=== PATIENT | female | born 1985 | race Caucasian/White ===

== ENCOUNTER 2019-11-08 02:22 | Outpatient (CLI) | payer MEDICAID, SELFPAY | END 2019-11-08 02:42 | PROVIDERS: Visit Provider Family Medicine | DX: R69 Illness, unspecified (principal) ==

== ENCOUNTER 2019-11-16 08:07 | Outpatient (CLI) | payer MEDICAID, SELFPAY | END 2019-11-16 08:27 | PROVIDERS: Visit Provider Family Medicine | DX: R69 Illness, unspecified (principal) ==

== ENCOUNTER 2022-08-21 09:18 | Emergency (ER) | payer MEDICAID, SELFPAY ==
[2022-08-21] VITALS (25 sets, daily range): BP systolic 91–121; BP diastolic 52–80; PULSE 95–167; RESP 11–28; O2SAT 85–98
--- NOTE | 2022-08-21 09:15 | RT.EKG_ITS ---
APPROVED REPORT Exam: Resting ECG Reason for Exam: sob Patient Location: E HR:101 bpm ECG Measurements Heart Rate 101 AXIS NM 141 P 53 QRSd 95 QRS -59 QT 356 T 0 QTc 463 Conclusion Sinus tachycardia Left atrial enlargement. Left anterior fascicular block. no st elevation
--- NOTE | 2022-08-21 09:38 | W.ED.GENAD ---
Discharge Plan Disposition Patient Disposition: Transfer-Acute Inpatient Care Specific Acute Inpt Facility: [facility] Condition: Serious Discharge Details Clinical Impression: Pulmonary embolism, bilateral Primary Care Provider: None,None ED Provider: Kostas Johnson Home Meds and New Rx's Prescriptions: No Action methadone [Dolophine] 10 MG tablet 220 mg PO DAILY Medical Decision Making This is a 37-year-old female who is referred from the methadone clinic. She presented there with respiratory distress and tachycardia. The patient states to me that she has had 2 to 3 weeks of progressive episodes of shortness of breath that she is predominantly noted while she walks the dog. She will become increasingly short of breath and over the past 2 days it is worsened with minimal exercise tolerance. She has not had chest pain or syncope. She has some chronic lower extremity swelling but nothing that she notes is new or asymmetric. She denies a fever but has noted a cough. She has been smoking marijuana and cigarettes. No crack cocaine use for months. Patient arrives tachycardic, speaking in full sentences but noted to have room air sat approximately 86%. Differential diagnosis is broad but would include pulmonary embolism, pneumonitis, pneumothorax, CHF. Patient IV access established, screening labs including ABG obtained, referred for EKG. ABG reveals a pH 7.4, PCO2 of 28, PO2 of 65. A-a gradient is approximately 28. White blood cell count of 12, hematocrit 46, platelets 225. Sodium 141, potassium 3.6, chloride 103, bicarb 24, BUN 13, creatinine 1.3, BNP of 1866, troponin 331. D-dimer greater than 6000. CT scan of the chest obtained, which reveals small infiltrate left lower lobe, small infiltrate right middle lobe. Pulmonary infarcts cannot be excluded. There are numerous bilateral pulmonary emboli involving all lobes of the lung. There is no evidence of saddle embolus. There is evidence of right heart strain with RV to LV ratio greater than 1. Patient placed on heparin drip with bolus. Images uploaded to [facility] and case discussed with Dr Isbell (accepting to the service of Dr. Guaman), who advocates that we discontinue the heparin drip, administer 1 mg/kg of subcutaneous Lovenox. The patient is accepted in transfer with consideration of catheter administered thrombolytics. She will be transported by the [facility] program. Lab Data Lab results reviewed: Yes I reviewed the patient's lab results. Labs: Laboratory Results - last 24 hr 08/21/22 08/21/22 08/21/22 09:40 09:40 09:40 WBC 12.12 H RBC 5.21 Hgb 15.9 H Hct 46.1 H MCV 89 MCH 30.5 MCHC 34.5 RDW 13.9 Plt Count 225 MPV 9.2 Immature Gran % 0.6 Neutrophils % 86.5 Lymphocytes % 9.2 Monocytes % 3.3 Eosinophils % 0.2 Basophils % 0.2 Nucleated RBC % 0.0 Absolute Neutrophils 10.48 H Absolute Lymphocytes 1.12 L Absolute Monocytes 0.40 Absolute Eosinophils 0.02 Absolute Basophils 0.02 D-Dimer 6077 H ABG Sample Site ABG pH ABG pCO2 ABG pO2 ABG HCO3 ABG Total CO2 ABG O2 Saturation ABG Base Excess Oxygen Liter Flow Sodium 141 Potassium 3.6 Chloride 103 Carbon Dioxide 24.3 Anion Gap 13.7 H BUN 13 Creatinine 1.3 H Est GFR (CKD-EPI 2020) 53.64 Glucose 150 H Calcium 9.5 Magnesium 1.9 Total Bilirubin 0.7 AST 39 H ALT 51 Alkaline Phosphatase 116 Troponin I 331 H* NT-Pro-B Natriuret Pep 1866 H Total Protein 8.5 H Albumin 3.9 08/21/22 10:05 WBC RBC Hgb Hct MCV MCH MCHC RDW Plt Count MPV Immature Gran % Neutrophils % Lymphocytes % Monocytes % Eosinophils % Basophils % Nucleated RBC % Absolute Neutrophils Absolute Lymphocytes Absolute Monocytes Absolute Eosinophils Absolute Basophils D-Dimer ABG Sample Site Left Radial ABG pH 7.44 ABG pCO2 29 L ABG pO2 66 L ABG HCO3 20 L ABG Total CO2 17 L ABG O2 Saturation 94 L ABG Base Excess -5 L Oxygen Liter Flow 4 Sodium Potassium Chloride Carbon Dioxide Anion Gap BUN Creatinine Est GFR (CKD-EPI 2020) Glucose Calcium Magnesium Total Bilirubin AST ALT Alkaline Phosphatase Troponin I NT-Pro-B Natriuret Pep Total Protein Albumin HPI General Mode of arrival: ambulatory. Date/Time Provider Initiated Documentation: 08/21/22 09:19. Limitations to Documentation: no limitations. Information obtained by: patient. History of Present Illness 37 year old F presents to the emergency department with the chief complaint of Shortness of breath worsening over 2 to 3 weeks time, described as moderate, and is localized to the chest. Patient reports no radiation. Patient started experiencing this week(s) and it has been intermittent. Rest improves symptom(s), Other factors that worsen symptoms (Worse when walking) . Patient notes cough and shortness of breath; denies chest pain, fever/chills, loss of appetite and syncope. Patient did receive the following treatments prior to arrival, none Related Data Home Medications Medication Instructions Recorded Confirmed methadone 10 mg tablet (Dolophine) 220 mg PO DAILY 10/26/14 08/21/22 Allergies Allergy/AdvReac Type Severity Reaction Status Date / Time No Known Allergies Allergy Unverified 08/21/22 09:28 General Stated Complaint: SOB ODIN: 3 Review of Systems Narrative: Sent from the methadone clinic where she had her morning dose. Denies any inhaled cocaine or other illicit drug use. Has been smoking some marijuana. Continues to smoke cigarettes. 8 systems reviewed and otherwise negative PFSH All Active Problems (Updated 08/21/22 @ 11:17 by Kostas Johnson MD) Pulmonary embolism, bilateral (Acute) Social History Smoking/Tobacco Use Status: Current every day Tobacco Type: cigarettes Smoking risk assessment performed?: Yes Drug use: Daily Substance use type: does not use and former substance user Details: on methadone through [facility] Do you feel safe at home: Yes Do you feel safe in your relationship?: Yes Exam Narrative Exam Narrative: GEN: awake, alert, oriented 3. Pleasant, well groomed, interactive. HEAD: Normocephalic, atraumatic ENT: Mucous membranes moist, oropharynx unremarkable, External ear exam unremarkable EYES: PERRL, EOMI NECK: Full ROM, no FIDEL, no menigismus CHEST/RESP: Nontender, predominantly clear, question rhonchi in the left anterior chest CARDIOVASCULAR: Tachycardic and regular, no murmur, rub govind. 2+ Rad pulse bilateral ABDOMEN: Soft, nontender, no mass. +Bowel sounds EXT: Full ROM, trace pretibial edema, no rash Neuro: Grossly normal neurologic exam, conversant, interactive. Psych: Speech fluent, thoughts congruent, affect mildly anxious Course Vital Signs Vital signs: Vital Signs Pulse 120 H 08/21/22 09:23 Respiratory Rate 16 08/21/22 09:23 Blood Pressure 114/77 08/21/22 09:23 Pulse Oximetry 86 L 08/21/22 09:23 Pulse 120 H 03/29/23 09:23 Respiratory Rate 28 H 08/21/22 09:32 Respiratory Effort Short of Breath, Labored 08/21/22 09:32 Respiratory Depth Shallow 08/21/22 09:32 Respiratory Pattern Normal 08/21/22 09:32 Blood Pressure 114/77 08/21/22 09:23 Blood Pressure Position Supine 08/21/22 09:23 Pulse Oximetry 86 L 08/21/22 09:23 Oxygen Delivery Method Room Air 08/21/22 09:23 Oxygen Flow Rate 0 08/21/22 09:23 Pain Level 0 08/21/22 09:23 Critical Care Time Critical Care Time Critical Care Time: Yes Total Critical Care Time: 40 Attestation: Review of records, discussion with consultants, bedside care.
[2022-08-21 09:50] LABS: Abs Immature Grans 0.07 10^3/uL (0.0-0.06); Absolute Basophil Count 0.02 10^3/uL (0.0-0.2); Absolute Eosinophil Count 0.02 10^3/uL (0.0-0.7); Absolute Lymphocyte Count 1.12 10^3/uL (1.2-3.4); Absolute Neutrophil Count 10.48 10^3/uL (1.2-6.7); Basophils % 0.2; Eosinophils % 0.2; HCT 46.1 % (36.0-46.0); HGB 15.9 g/dL (11.2-15.7); Immature Grans % 0.6; Lymphocytes % 9.2; MCH 30.5 pg (27.0-33.0); MCHC 34.5 % (32.0-36.0); MCV 89 fL (80-95); MPV 9.2 fL (8.0-11.0); Monocytes % 3.3; Neutrophils % 86.5; Platelet Count 225 10^3/uL (130-400); RBC 5.21 10^6/uL (3.93-5.22); RDW 13.9 % (11.7-14.6); RDW-SD 44.4 fL; WBC 12.12 10^3/uL (4.4-10.8)
[2022-08-21] MEDS: LORazepam 2 MG/ML VIAL 1 MG IVP ×2 (09:53→12:12)
--- NOTE | 2022-08-21 10:00 | DI.CT_ITS ---
Exam(s) CT CHEST PE CTA EXAM: CT CHEST PE CTA CLINICAL HISTORY: Hypoxia, Elev A-a gradient, tachycardia. TECHNIQUE: Imaging Protocol: Axial CT angiography was performed with multi-slice acquisition and mu lti-planar and/or 3D reconstructions. CONTRAST MATERIAL: Intravenous: Omnipaque 350 contrast volume:100 mL COMPARISON: No exams were available for comparison FINDINGS: Tracheobronchial tree: Patent where visualized. Pulmonary parenchyma: There is a small infiltrate seen in the periphery of the left lower lobe inferi sukh. There is also small peripheral infiltrate in the right middle lobe. Pulmonary infarcts cannot be excluded. No architectural distortion. Pulmonary Arteries: There are numerous bilateral pulmonary emboli involving all lobes of the lung. T here is no evidence of a saddle embolus at the junction of the right and left pulmonary arteries. Th ere is evidence of right heart strain with the RV to LV ratio greater than 1. Mediastinum and Caterina: No dominant adenopathy or fluid collection. The esophagus is unremarkable. Visualized thyroid gland: Unremarkable. Pleura: No effusion or pneumothorax. Heart: The heart is not dilated. No coronary artery calcifications are seen. No pericardial effusion. Findings consistent with right heart strain with a RV to LV ratio of greater than 1. Aorta: Thoracic aorta non-dilated. No evidence of dissection. Upper abdomen: Unremarkable. Soft tissues: Unremarkable. Bones: Within normal limits for the patient's age. IMPRESSION: 1. Findings of pulmonary emboli with a high clot thrombus burden and evidence of right heart strain. 2. Small peripheral infiltrates seen in the right middle lobe and the left lower lobe. Pulmonary inf arcts cannot be excluded. 3. Findings were discussed with Ronald Noriega at 10:48 a.m. on 08/21/2022. RADIATION DOSE DELIVERED: Total DLP DATA REPOSITORY: All CT scans at this facility are submitted to the National Radiology Data Registry (NRDR) Dose Index Registry (DIR) with the [employer] (ACR). RADIATION OPTIMIZATION: All CT scans at this facility use at least one of these dose optimization te chniques: automated exposure control; mA and/or kV adjustment per patient size (includes targeted exa ms where dose is matched to clinical indication); or iterative reconstruction.
[2022-08-21 10:10] LABS: BE -5 mmol/L (-2-3); HCO3 20 mmol/L (22-26); pCO2 29 mmHg (35-45); pH 7.44 (7.35-7.45); pO2 66 mmHg (80-105); sO2 94 % (95-98); tCO2 17 mmol/L (23-27)
[2022-08-21 10:11] LABS: FIO2L 4 L; Site Left Radial
[2022-08-21 10:13] LABS: ALT 51 U/L (14-59); AST 39 U/L (15-37); Albumin 3.9 g/dL (3.4-5.0); Alkaline Phosphatase 116 U/L (46-116); Anion Gap 13.7 mmol/L (3-11); BUN 13 mg/dL (7-18); Bilirubin, Total 0.7 mg/dL (0.2-1.0); CO2 24.3 mmol/L (21.0-32.0); CREATININE 1.3 mg/dL (0.55-1.02); Calcium 9.5 mg/dL (8.5-10.1); Chloride 103 mmol/L (98-107); Estimated GFR 53.64 (mL/min/1.73m2); Glucose 150 mg/dL (74-106); Magnesium 1.9 mg/dL (1.8-2.4); NT-proBNP 1866 pg/mL (<300); Potassium 3.6 mmol/L (3.5-5.1); Sodium 141 mmol/L (136-145); Total Protein 8.5 g/dL (6.4-8.2)
[2022-08-21 10:18] LABS: Troponin I 331 ng/L (<or=60)
[2022-08-21 10:21] LABS: D-Dimer 6077 ng/mlFEU (<500)
[2022-08-21] MEDS: Omnipaque 350 MG/ML 500 ML BTL-Imaging package IJ (10:29)
[2022-08-21] MEDS: Normal Saline - Diluent 50 ML VIAL IJ ×2 (10:33→10:43)
[2022-08-21] MEDS: Normal Saline Flush 10 ML SYR IVP (10:44)
[2022-08-21 11:08] LABS: COVID-19 PCR Negative (Negative); Influenza A PCR Negative (Negative); Influenza B PCR Negative (Negative); RSV PCR Negative (Negative)
[2022-08-21 11:12] LABS: Source Nasopharynx
[2022-08-21] MEDS: Enoxaparin 100 MG/ML SYR SC (11:57)
[2022-08-21] MEDS: Normal Saline 250 ML IV (11:57)
--- NOTE | 2022-08-21 17:26 | NUR.NOTE ---
Nursing Note: LILIANA called with an updated report. 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
--- NOTE | 2022-08-22 09:16 | NUR.NOTE ---
Nursing Note: Accessed pt chart to determine disposition. Medical records called stating that [facility] had faxed her information to them and did we still need it. I called [facility] and medical records will fax the information to them. Attn. Sarita.
== END 2022-08-21 12:53 | disposition short-term general hospital (02) ==
PROVIDERS: Emergency Provider Emergency Medicine
DX: I26.99 Other pulmonary embolism without acute cor pulmonale (principal); R79.1 Abnormal coagulation profile; F17.210 Nicotine dependence, cigarettes, uncomplicated; Z20.822 Contact with and (suspected) exposure to COVID-19
CPT/HCPCS: 36415; 71275; 80053; 82805; 87637; 93005; 94640; 96365; 96366; 96372; 96375; 96376; 99291; 36600; 83735; 83880; 84484; 85025; 85379; 93010; J1650; J2060; J7613; J7644

== ENCOUNTER 2022-11-26 19:19 | Observation (INO) | payer MEDICAID, SELFPAY ==
--- NOTE | 2022-11-26 19:15 | RT.EKG_ITS ---
APPROVED REPORT Exam: Resting ECG Reason for Exam: chest pain Patient Location: E HR:57 bpm ECG Measurements Heart Rate 57 AXIS AK 134 P 24 QRSd 104 QRS 3 QT 452 T 31 QTc 442 Conclusion Slow sinus arrhythmia...V-rate 52- 68, mean< 60
[2022-11-26 19:20] VITALS: TEMP 36.3
--- NOTE | 2022-11-26 19:47 | DI.CT_ITS ---
Exam(s) CT CHEST PE ABD PELVIS W EXAM: CT CHEST PE ABD PELVIS W CLINICAL HISTORY: Right chest pain, PE on eliquis. ruq pain. TECHNIQUE: Imaging Protocol: Axial CT angiography was performed with multi-slice acquisition and mu lti-planar and/or 3D reconstructions. CONTRAST MATERIAL: Intravenous: Omnipaque 350 Contrast volume:100 ml COMPARISON: CT CT CHEST PE CTA from 08/21/2022 FINDINGS: CHEST: Pulmonary Arteries: No evidence of filling defect to suggest pulmonary emboli. Tracheobronchial tree: Patent where visualized. Mediastinum and Caterina: No dominant adenopathy or fluid collection. Pulmonary parenchyma: Suboptimal evaluation due to respiratory motion and expiratory changes. No con solidation or dominant measurable mass. Pleura: No effusion or pneumothorax. Heart: The heart is not dilated. No coronary artery calcifications are seen. Aorta: Thoracic aorta non-dilated. Bones: Meningioma T6. Bone island T7. No fractures. Tubes, Catheters, and Lines: IVC filter. ABDOMEN: Liver: Normal density. No measurable mass. Portal, Superior Mesenteric, and Splenic Veins: Unremarkable. Gallbladder and Biliary Tract: Gallbladder somewhat distended but similar to prior. No radiodense ca lculus. Mild dilatation of the common bile duct to 7 millimeters, similar to prior. Pancreas: Normal density, no abnormal calcifications or inflammatory process. Spleen: Normal. Adrenals: No masses seen. Kidneys: Normal size, contour and axis. No radiodense stones or obstructive uropathy. No masses seen. Abdominal Aorta: Abdominal portion non-dilated. Bowel: No obstruction or bowel wall thickening. Appendix is unremarkable. Moderate to increased sto ol. Peritoneal Cavity: No ascites, collection or mesenteric inflammatory response. Lymph Nodes: Within normal limits. Bones: Partial sacralization of L5. Soft Tissues: Surgical clips right inguinal region. PELVIS: Bladder: Nearly empty. Not well evaluated. Reproductive Organs: IUD noted. Left ovarian follicle. Lymph Nodes: Within normal limits. Bones: Within normal limits. IMPRESSION: 1. No evidence of pulmonary embolism or other acute abnormality in the chest. 2. Gallbladder is somewhat distended.. The findings are similar to the prior exam. Ultrasound could be performed for further evaluation of clinically indicated. RADIATION DOSE DELIVERED: 1,593.23mGy.cm Total DLP DATA REPOSITORY: All CT scans at this facility are submitted to the National Radiology Data Registry (NRDR) Dose Index Registry (DIR) with the [employer] (ACR). RADIATION OPTIMIZATION: All CT scans at this facility use at least one of these dose optimization te chniques: automated exposure control; mA and/or kV adjustment per patient size (includes targeted exa ms where dose is matched to clinical indication); or iterative reconstruction.
[2022-11-26 19:53] VITALS: BP 127/78; PULSE 60; RESP 22; O2SAT 97
[2022-11-26] MEDS: FAMOTIDINE 20 MG in Normal Saline 100 ML 400 MG IVPB (20:00)
[2022-11-26] MEDS: ACETAMINOPHEN 1,000 MG/100 ML BTL 400 MG IVPB (20:02)
[2022-11-26 20:09] LABS: Abs Immature Grans 0.04 10^3/uL (0.0-0.06); Absolute Basophil Count 0.03 10^3/uL (0.0-0.2); Absolute Eosinophil Count 0.03 10^3/uL (0.0-0.7); Absolute Lymphocyte Count 0.89 10^3/uL (1.2-3.4); Absolute Monocyte Count 0.38 10^3/uL (0.1-0.8); Absolute Neutrophil Count 7.72 10^3/uL (1.2-6.7); Basophils % 0.3; Eosinophils % 0.3; HCT 40.4 % (36.0-46.0); HGB 13.7 g/dL (11.2-15.7); Immature Grans % 0.4; Lymphocytes % 9.8; MCH 30.7 pg (27.0-33.0); MCHC 33.9 % (32.0-36.0); MCV 91 fL (80-95); MPV 10.1 fL (8.0-11.0); Monocytes % 4.2; Platelet Count 220 10^3/uL (130-400); RBC 4.46 10^6/uL (3.93-5.22); RDW 12.8 % (11.7-14.6); RDW-SD 42.2 fL; WBC 9.09 10^3/uL (4.4-10.8)
[2022-11-26 20:33] LABS: ALT 23 U/L (14-59); AST 20 U/L (15-37); Albumin 3.6 g/dL (3.4-5.0); Alkaline Phosphatase 107 U/L (46-116); Anion Gap 12.7 mmol/L (3-11); BUN 9 mg/dL (7-18); Bilirubin, Total 0.2 mg/dL (0.2-1.0); CO2 25.3 mmol/L (21.0-32.0); Calcium 9.3 mg/dL (8.5-10.1); Chloride 102 mmol/L (98-107); Estimated GFR 73.49 (mL/min/1.73m2); Glucose 146 mg/dL (74-106); Lipase 24 U/L (16-77); Potassium 3.2 mmol/L (3.5-5.1); Sodium 140 mmol/L (136-145); Total Protein 7.9 g/dL (6.4-8.2); Troponin I < 50 ng/L (<or=60)
[2022-11-26 20:34] LABS: HCG Qual (Serum) Negative
--- NOTE | 2022-11-26 20:41 | NUR.NOTE ---
Nursing Note:Pt comes to the ED anxious and stating she has a blood clot in her abd and needs to go to [facility], the pt stated she has hx of DVTs with air lifted to [facility]. Pt c/o NVD stating she has and abd clot. pt also takes methadone, and states she feels she is withdrawing but took all her methadone this am. pt full sentences, now forcing her hand in her mouth to vomit, provider aware
[2022-11-26] MEDS: Omnipaque 350 MG/ML 100 ML BTL IJ (21:06)
[2022-11-26] MEDS: Normal Saline - Diluent 50 ML VIAL IJ (21:07)
[2022-11-26] MEDS: Normal Saline Flush 10 ML SYR IVP (21:07)
[2022-11-26] MEDS: Ondansetron 4 MG/2 ML VIAL IVP (21:20)
--- NOTE | 2022-11-26 21:49 | DI.VRAD_ITS ---
Addendum created by Karen Perry MD on 11/27/2022 2:47:58 AM EDT: There are nonocclusive emboli in the right middle and bilateral lower lobes. Clot burden is overall decreased compared with prior examination and these may represent mostly chronic/residual emboli. Evaluation is suboptimal due to motion artifact and small acute emboli are therefore difficult to exclude. Evidence for right heart strain persists. THIS REPORT CONTAINS FINDINGS THAT MAY BE CRITICAL TO PATIENT CARE. The findings were verbally communicated via telephone conference with Dr. Neri at 2:47 AM EDT on 11/27/2022. The findings were acknowledged and understood. Initial report created on 11/26/2022 9:48:28 PM EDT: PROCEDURE INFORMATION: Exam: CTA Chest With Contrast Exam date and time: 11/26/2022 9:29 PM Age: 37 years old Clinical indication: Right-sided; Abdominal pain; Localized; Right upper quadrant (ruq); Patient HX: Right chest pain, pe on eliquis. Ruq pain TECHNIQUE: Imaging protocol: Computed tomographic angiography of the chest with contrast. Exam focused on the arteries. Radiation optimization: All CT scans at this facility use at least one of these dose optimization techniques: automated exposure control; mA and/or kV adjustment per patient size (includes targeted exams where dose is matched to clinical indication); or iterative reconstruction. Contrast material: OMNIPAQUE 350; Contrast volume: 100 ml; Contrast route: INTRAVENOUS (IV); COMPARISON: 1. CT CHEST PE CTA 08/21/2022 10:32 AM 2. VASCULATURE: FINDINGS: Pulmonary arteries: No pulmonary emboli. Aorta: No aortic aneurysm. No aortic dissection. Renal arteries: No occlusion or significant stenosis. Veins: IVC filter noted Lungs: Unremarkable. No consolidation. No masses. Pleural spaces: Unremarkable. No pneumothorax. No pleural effusion. Heart: Mild cardiomegaly. No pericardial effusion. Lymph nodes: Unremarkable. No enlarged lymph nodes. Bones/joints: Unremarkable. No acute fracture. Soft tissues: Unremarkable. IMPRESSION: No pulmonary emboli observed Mild cardiomegaly PROCEDURE INFORMATION: Exam: CT Abdomen And Pelvis With Contrast Exam date and time: 11/26/2022 9:29 PM Clinical indication: Right-sided; Abdominal pain; Localized; Right upper quadrant (ruq); Patient HX: Right chest pain, pe on eliquis. Ruq pain TECHNIQUE: Imaging protocol: Computed tomography of the abdomen and pelvis with contrast. COMPARISON: No relevant prior studies available. FINDINGS: Liver: Normal. No mass. Gallbladder and bile ducts: Distended gallbladder with wall thickening No calcified stones. Mild ductal dilation. Pancreas: Normal. No ductal dilation. Spleen: Normal. No splenomegaly. Adrenal glands: Normal. No mass. Kidneys and ureters: Hypodensities in the right kidney too small to characterize No hydronephrosis. Stomach and bowel: Unremarkable. No obstruction. No mucosal thickening. Appendix: No evidence of appendicitis. Intraperitoneal space: Unremarkable. No free air. No significant fluid collection. Vasculature: Unremarkable. No abdominal aortic aneurysm. Lymph nodes: Unremarkable. No enlarged lymph nodes. Urinary bladder: Unremarkable as visualized. Reproductive: 2.5 cm left ovarian cyst. Intrauterine device in the uterus. Bones/joints: Unremarkable. No acute fracture. Soft tissues: Postsurgical changes in the right inguinal region IMPRESSION: Abnormal gallbladder as described. Correlate for acute cholecystitis. Mild dilatation of the common bile duct. No definite calcified stones Further evaluation with right upper quadrant ultrasound recommended Nonurgent findings as noted Dictated and Authenticated by: Karen Perry MD. Ordering:REGGIE Brown MD
[2022-11-26] MEDS: fentaNYL 100 MCG/2 ML VIAL 50 MCG IVP (22:15)
[2022-11-26] MEDS: Normal Saline 1,000 ML 1000 ML IV (22:15)
--- NOTE | 2022-11-26 22:40 | ED.GENADUL_ITS ---
Discharge Plan Disposition Patient Disposition: Admit to [facility] Discharge Details Admit Date/Time: 11/26/22 22:41 Admit Provider: Terry Neri Attending Provider: Terry Neri Primary Care Provider: None,None ED Provider: Stephanie Marti Discharge Data Discharge Date/Time-TO BE ENTERED AT DEPARTURE: 11/26/22 23:59 Medical Decision Making 37-year-old female screaming in triage, unwilling to have vitals done initially, difficult to assess secondary to behaving emotionally labile CT and labs were ordered, mildly hypokalemic at 3.2, no leukocytosis, CT abdomen pelvis and thorax did not show evidence of acute PE but does show evidence of acute cholecystitis, patient has intractable pain despite her methadone, she is needed numerous opiates throughout this encounter She is given antiemetics for nausea Case was discussed with Dr. Neri who will admit patient to his care, Zosyn will be initiated, potassium 40 mEq for hypokalemia will be initiated He is agreeable to admitting the patient at this time, admission orders have been placed HPI General Date/Time Provider Initiated Documentation: 11/26/22 19:41 . HPI Narrative: This 37-year-old female presents with report of terrible pain in her right upper quadrant, states she has a history of PE and this feels similar. States she feels short of breath and nauseous. Denies any fever or chills. States her symptoms started this afternoon. Did have her methadone today per patient. Denies additional illicit drug use. Denies chance of . Related Data Home Medications Medication Instructions Recorded Confirmed methadone 10 mg tablet (Dolophine) 220 mg PO DAILY 10/26/14 11/26/22 Allergies Allergy/AdvReac Type Severity Reaction Status Date / Time No Known Allergies Allergy Unverified 08/21/22 09:28 General Stated Complaint: Abd Prob ODIN: 3 PFSH Social History Smoking/Tobacco Use Status: Current every day Tobacco Type: cigarettes Smoking risk assessment performed?: Yes Drug use: Daily Substance use type: does not use and former substance user Details: on methadone through [facility] Housing: apartment Do you feel safe at home: Yes Do you feel safe in your relationship?: Yes Course Vital Signs Vital signs: Vital Signs Temperature 36.3 C L 11/26/22 19:20 Temperature 36.3 C L 11/26/22 19:20 Temperature Source Temporal Artery Scan 11/26/22 19:20 Pulse 60 11/26/22 19:53 Respiratory Rate 22 11/26/22 19:53 Respiratory Effort Normal 11/26/22 20:09 Blood Pressure 127/78 11/26/22 19:53 Pulse Oximetry 97 11/26/22 19:53 Oxygen Delivery Method Room Air 11/26/22 19:53 Oxygen Flow Rate 0 11/26/22 19:53 Pain Level 10 11/26/22 20:09 Lab/Test Results Lab/Test Results: Laboratory Tests Range/Units 11/26/22 11/26/22 11/26/22 19:49 19:49 19:49 WBC (4.4-10.8) 10^3/uL 9.09 RBC (3.93-5.22) 10^6/uL 4.46 Hgb (11.2-15.7) g/dL 13.7 Hct (36.0-46.0) % 40.4 MCV (80-95) fL 91 MCH (27.0-33.0) pg 30.7 MCHC (32.0-36.0) % 33.9 RDW (11.7-14.6) % 12.8 Plt Count (130-400) 10^3/uL 220 MPV (8.0-11.0) fL 10.1 Immature Gran % 0.4 Neutrophils % 85.0 Lymphocytes % 9.8 Monocytes % 4.2 Eosinophils % 0.3 Basophils % 0.3 Nucleated RBC % (0.0-0.3) % 0.0 Absolute Neutrophils (1.2-6.7) 10^3/uL 7.72 H Absolute Lymphocytes (1.2-3.4) 10^3/uL 0.89 L Absolute Monocytes (0.1-0.8) 10^3/uL 0.38 Absolute Eosinophils (0.0-0.7) 10^3/uL 0.03 Absolute Basophils (0.0-0.2) 10^3/uL 0.03 Sodium (136-145) mmol/L 140 Potassium (3.5-5.1) mmol/L 3.2 L Chloride (98-107) mmol/L 102 Carbon Dioxide (21.0-32.0) mmol/L 25.3 Anion Gap (3-11) mmol/L 12.7 H BUN (7-18) mg/dL 9 Creatinine (0.55-1.02) mg/dL 1.0 Est GFR (CKD-EPI 2020) (mL/min/1.73m2) 73.49 Glucose (74-106) mg/dL 146 H Calcium (8.5-10.1) mg/dL 9.3 Total Bilirubin (0.2-1.0) mg/dL 0.2 AST (15-37) U/L 20 ALT (14-59) U/L 23 Alkaline Phosphatase (46-116) U/L 107 Troponin I (<or=60) ng/L < 50 Total Protein (6.4-8.2) g/dL 7.9 Albumin (3.4-5.0) g/dL 3.6 Lipase (16-77) U/L 24 Serum HCG, Qual Negative
[2022-11-26] MEDS: Potassium Chloride 20 MEQ TABCR 40 MEQ PO (22:55)
[2022-11-26] MEDS: HYDROmorphone 2 MG/ML SYR 1 MG IVP (22:56)
[2022-11-26] MEDS: oxyCODONE 5 MG TAB PO (22:56)
[2022-11-26 23:16] VITALS: BP 187/99; PULSE 76; RESP 24; TEMP 36.9; O2SAT 96
[2022-11-26] MEDS: PIPERACILLIN/TAZO 3.375 GM in Normal Saline 50 ML IVPB (23:19)
[2022-11-26] MEDS: Metoclopramide 10 MG/2 ML VIAL IVP (23:24)
[2022-11-27] MEDS: Normal Saline 1,000 ML 100 ML IV (00:40)
[2022-11-27] MEDS: Normal Saline Flush 10 ML SYR IVP (00:41)
[2022-11-27 00:53] VITALS: BP 112/69; PULSE 79; RESP 18; TEMP 36.5; O2SAT 97
[2022-11-27 01:41] VITALS: BP 112/69; PULSE 79; RESP 18; TEMP 36.5; O2SAT 97
[2022-11-27] MEDS: HYDROmorphone 2 MG/ML SYR 1 MG IVP (02:34)
[2022-11-27] MEDS: oxyCODONE 5 MG TAB PO (03:17)
--- NOTE | 2022-11-27 03:19 | NUR.NOTE ---
0300-CONTINUES TO C/O ruq AND MID BACK PAIN. GIVEN HYDROMORPHONE 1 MG iv WITH NO RELIEF FOLLOWED BY OXYCODONE 5 MG PO WITH SIP OF WATER . PT ENCOURAGED TO LET THIS MEDICATION WORK AND TRY AND GET SOME SLEEP. LYING QUIETLY IN BED ATPRESENT.
[2022-11-27 04:03] VITALS: BP 118/64; PULSE 82; RESP 18; TEMP 36.6; O2SAT 98
--- NOTE | 2022-11-27 05:22 | NUR.NOTE ---
0440 Pt demanding that we let her go out to meet her and go to [facility] to get her methadone because she needs it now. Spervisor notified. Here to talk with pt and made pt aware of the consequences of perhaps not having a bed if she returns. Pt insissts that she has to go now. Signed out AMA. Aterjgiving her the AMA form, she refused to sign. supervisor car and yard aware. Iv dc'd and saline lock removed. [facility]. surgeon Dr Neri notified.
--- NOTE | 2022-11-29 17:19 | W.PM.HP.N ---
Date of service: 11/27/22 Time of Service: 05:00 Assessment and Plan Assessment and plan (1) Abdominal pain: Status: Acute Assessment and plan: Kitty left the hospital AGAINST MEDICAL ADVICE before I was able to see and evaluate her. History of Present Illness History of Present Illness Chief Complaint: Abdominal pain Narrative: Kitty is 37 years old, and she came to the emergency department complaining of abdominal pain. She underwent a CAT scan of the abdomen and pelvis which raised medical diagnosis of acute cholecystitis. She was admitted from the emergency department to the hospital, but left AGAINST MEDICAL ADVICE before my arrival to the hospital. PFSH All Active Problems (Updated 11/29/22 @ 17:22 by Terry Neri MD) Abdominal pain (Acute) Social History Smoking/Tobacco Use Status: Current every day Tobacco Type: cigarettes Smoking risk assessment performed?: Yes Drug use: Daily Substance use type: does not use and former substance user Details: on methadone through [facility] Housing: apartment Do you feel safe at home: Yes Do you feel safe in your relationship?: Yes Meds Allergies and Home Medications Allergies Allergy/AdvReac Type Severity Reaction Status Date / Time No Known Allergies Allergy Unverified 08/21/22 09:28 Home Medications Medication Instructions Recorded Confirmed Type methadone 10 mg tablet (Dolophine) 220 mg PO DAILY 10/26/14 11/26/22 History Results Labs 11/26/22 19:49 11/26/22 19:49 Last Vital Signs Temp 97.9 F 11/27/22 04:03 Pulse 82 11/27/22 04:03 Resp 18 11/27/22 04:03 BP 118/64 11/27/22 04:03 Pulse Ox 98 11/27/22 04:03 Time Spent Time spent with Patient: 40-54 minutes Time was spent: preparing to see the patient(eg.review tests) and referring, communicating with other health home care administrator
== END 2022-11-27 05:15 | disposition left against medical advice (07) ==
LOC: ER 22:54 → ICU 11-27 00:30
PROVIDERS: Admitting Provider Surgery; Emergency Provider Physician Assistant; Visit Provider Surgery
DX: K81.0 Acute cholecystitis (principal); R10.11 Right upper quadrant pain; E87.6 Hypokalemia; F17.210 Nicotine dependence, cigarettes, uncomplicated; F11.20 Opioid dependence, uncomplicated
CPT/HCPCS: 36415; 71275; 74177; 80053; 83690; 93005; 96365; 96368; 96374; 96375; 99285; 84484; 84703; 85025; 93010; G0378; J0131; J1170; J2405; J2765; J3010; J3490